=== PATIENT | female | born 1985 | race Caucasian/White ===

== ENCOUNTER 2016-08-26 05:13 | Day surgery (SDC) | payer OTHER ==
[2016-08-23 12:16] LABS: HEMATOCRIT 42.4 % (36.0-47.0); HEMOGLOBIN 13.5 g/dL (12.0-15.5); HGB HCT DIFFERENCE -1.9; MEAN CORPUSCULAR HGB CONC 31.9 g/dL (32.0-36.0); MEAN CORPUSCULAR VOLUME 94 fl (80-97); RED BLOOD COUNT 4.52 10^6/uL (3.72-5.28); RED CELL DISTRIBUTION WIDTH 12.4 % (11.5-14.0); WHITE BLOOD COUNT 4.8 10^3/uL (4.0-10.5)
[2016-08-23 12:18] LABS: APPEARANCE,URINE CLEAR; BILIRUBIN,URINE NEGATIVE (NEGATIVE); GLUCOSE, URINE NEGATIVE (NEGATIVE); KETONES,URINE NEGATIVE (NEGATIVE); LEUKOCYTE ESTERASE,URINE NEGATIVE (NEGATIVE); NITRITE,URINE NEGATIVE (NEGATIVE); PROTEIN,URINE NEGATIVE (NEGATIVE); URINE SPECIFIC GRAVITY 1.009; UROBILINOGEN,URINE NEGATIVE mg/dL (<2.0)
[2016-08-23 12:42] LABS: ANION GAP 10 (5-19); BLOOD UREA NITROGEN 12 mg/dL (7-20); CALCIUM 9.6 mg/dL (8.4-10.2); CARBON DIOXIDE 25 mmol/L (22-30); CHLORIDE 105 mmol/L (98-107); CREATININE RESULT 0.82 mg/dL (0.52-1.25); GLUCOSE 82 mg/dL (75-110); POTASSIUM 4.3 mmol/L (3.6-5.0); SODIUM 140.1 mmol/L (137-145)
[~2016-08-26 05:13] MED LIST: CLINDAMYCIN 600 MG/D5W RTU 600 MG/50 ML RTUPB IV PRN; LACTATED RINGERS 1000 ML IV PRN; RINGERS SOLUTION,LACTATED 1,000 ML IV PRN
[2016-08-26] MEDS ORDERED: LIDOCAINE 1% INJ-PF (10 MG/ML) 30 ML SDV ONE (06:40)
[2016-08-26] MEDS ORDERED: SCOPOLAMINE HYDROBROMIDE 1.5 MG PATCH.TD72 ONE (07:03)
[2016-08-26] MEDS ORDERED: MIDAZOLAM 2 MG/2 ML INJ ONE (07:04)
[2016-08-26] MEDS ORDERED: DEXAMETHASONE SOD PHOSPHATE INJ 4 MG/1 ML VIAL ONE (07:04)
[2016-08-26] MEDS ORDERED: HYDROMORPHONE HCL INJ/PF 2 MG/ML AMPULE ONE (07:04)
[2016-08-26] MEDS ORDERED: ONDANSETRON HCL INJ/PF 4 MG/2 ML SDV ONE (07:04)
[2016-08-26] MEDS ORDERED: IBUPROFEN INJ 800 MG/8 ML VIAL IV ONE (07:05)
[2016-08-26] MEDS ORDERED: PROPOFOL INJ 200 MG/20 ML VIAL IV ONE (07:05)
[2016-08-26] MEDS ORDERED: FAMOTIDINE INJ/PF 20 MG/2 ML SDV IV ONE (07:16)
[2016-08-26] MEDS ORDERED: DIPHENHYDRAMINE HCL 50 MG/ML VIAL IV PRN (07:39)
[2016-08-26] MEDS ORDERED: FENTANYL CITRATE INJ/PF 100 MCG/2 ML AMPUL IV PRN ×3 (07:39)
[2016-08-26] MEDS ORDERED: PROMETHAZINE HCL INJ 25 MG/1 ML VIAL IV PRN (07:39)
[2016-08-26] MEDS ORDERED: ACETAMINOPHEN 100 ML IV ONE (07:56)
[2016-08-26] MEDS ORDERED: RINGERS SOLUTION,LACTATED 1,000 ML IV PRN (08:05)
[2016-08-26] MEDS ORDERED: MORPHINE SULFATE 10 MG/ML INJ INJ PRN (08:06)
[2016-08-26] MEDS ORDERED: PROMETHAZINE HCL INJ 25 MG/1 ML VIAL IM PRN (08:06)
[2016-08-26] MEDS ORDERED: OXYCODONE-ACETAMINOPHEN 5-325 MG TABLET PO PRN (08:06)
--- NOTE | 2016-08-26 08:43 | OPERATIVE REPORT E ---
Operative Report NAME: NERI SEN : 1985 AGE: 30Y DATE OF SURGERY: 08/26/2016 ROOM: PREOPERATIVE DIAGNOSIS: Menorrhagia. POSTOPERATIVE DIAGNOSIS: Menorrhagia. OPERATION: 1. Hysteroscopy. 2. NovaSure ablation. SURGEON: SANJU DOWNING M.D. COMPLICATIONS: None. ANESTHESIA: LMA general. FINDINGS: Normal cervix, uterus, no endometrial polyps or fibroids appreciated. Length was 4.0 cm, width of 2.9 cm. 64 watt seconds of power for 1 minute 46 seconds was used. INDICATION FOR PROCEDURE: The patient had menorrhagia unresponsive to unusual outpatient management and desired attempt at definitive therapy. The usual risks of bleeding, infection, anesthesia and damage to organs and tissues were discussed and the patient understood. DESCRIPTION OF PROCEDURE: The patient taken to the operating room and placed in modified lithotomy position. Adequate anesthesia was ascertained. Prepped in the usual manner for a hysteroscopy. Bladder was left undrained. UA performed. Antibiotics had been given and a surgical timeout performed. The cervix was dilated after measurements were taken and hysteroscopy ensued. A normal cavity was appreciated. *------* were identified and photographs were taken. NovaSure device was inserted and deployed. Measurements were again taken and device was fired. Uterine integrity had been confirmed pre and post procedure with re-hysteroscopy. At the completion of the procedure, all sponge, needle, and instrument counts were corrected. Complete burn was noted throughout. The patient was taken to the recovery room in stable condition. DICTATING PHYSICIAN: SANJU DOWNING M.D. [id number] PHY#: [id number] ID: [id number] JOB#: [id number] ACCT: [id number] cc:SANJU DOWNING M.D. >
[2016-08-26 10:26] VITALS: BP 111/69
== END 2016-08-26 09:55 | disposition home or self-care (01) ==
LOC: OROUT 05:13
PROVIDERS: ATTEND Specialist
PROC: 0U5B8ZZ Destruction of Endometrium, Via Natural or Artificial Opening Endoscopic (ICD-10-PCS; principal; 2016-08-26 07:15)
DX: N92.0 Excessive and frequent menstruation with regular cycle (principal); D64.9 Anemia, unspecified; K22.0 Achalasia of cardia; Q79.6 Ehlers-Danlos syndromes; Z88.0 Allergy status to penicillin; Z88.2 Allergy status to sulfonamides
CPT/HCPCS: 86900; 86901; 36415; 86850; 85027; 81025; 80048; 81001; 58563; J2250; J1100; J1170; J2405; J2704; S0028; J0131; J1741; 952; J3490